=== PATIENT | female | born 1965 | race Caucasian/White ===

== ENCOUNTER 2017-02-15 02:07 | Emergency (ER) | payer MEDICAID ==
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
[2017-02-15 03:04] VITALS: BP 140/77
== END 2017-02-15 02:45 | disposition home or self-care (01) ==
LOC: MW.ED 02:07
DX: J02.9 Acute pharyngitis, unspecified (principal)
CPT/HCPCS: 99282; 99283